=== PATIENT | female | born 1965 | race American Indian/Alaskan Native ===

== ENCOUNTER 2017-12-29 09:57 | Emergency (ER) | payer OTHER ==
[2017-12-29 10:01] VITALS: BMI 35.9
[2017-12-29] MEDS ORDERED: Sodium Chloride 0.9% 1,000 ML IV ONE (10:44)
[2017-12-29] MEDS ORDERED: Sodium Chloride 0.9% 1,000 ML IV SCH (10:45)
[2017-12-29 10:56] LABS: HCG,QUALITATIVE URINE NEGATIVE (NEGATIVE)
[2017-12-29 10:56] LABS: BASO % 0.5 % (0.0-2.0); EOS # 0.1 K/uL (0.0-0.7); EOS % 1.3 % (0.0-4.0); HEMOGLOBIN 12.6 g/dL (11.0-16.0); LYMPH # 2.6 K/uL (1.0-4.3); LYMPH % 36.9 % (20.0-40.0); MEAN CORPUSCULAR HEMOGLOBIN 28.3 pg (27.0-31.0); MEAN CORPUSCULAR HGB CONC 33.7 g/dL (33.0-37.0); MEAN PLATELET VOLUME 8.1 fL (7.2-11.7); MONO # 0.4 K/uL (0.0-0.8); MONO % 6.3 % (0.0-10.0); NEUT # 3.8 K/uL (1.8-7.0); NRBC % 0.2 % (0.0-2.0); RBC 4.46 Mil/uL (3.80-5.20); RED CELL DISTRIBUTION WIDTH 13.9 % (11.5-14.5)
[2017-12-29 11:03] LABS: SQUAMOUS EPITHIAL 7 /hpf (0-5); URINE BACTERIA RARE (<OCC); URINE BILIRUBIN NEGATIVE (NEGATIVE); URINE BLOOD NEGATIVE (NEGATIVE); URINE CLARITY Hazy (Clear); URINE COLOR Yellow (YELLOW); URINE GLUCOSE (UA) NORMAL (Normal); URINE LEUKOCYTE ESTERASE TRACE Leu/uL (Negative); URINE PROTEIN NEGATIVE (NEGATIVE); URINE UROBILINOGEN NORMAL mg/dL (0.2-1.0)
[2017-12-29] MEDS ORDERED: Sodium Chloride 0.9% 1,000 ML ONE (11:05)
[2017-12-29 11:24] LABS: ALB/GLOB RATIO 1.1 (1.0-2.1); ALBUMIN 3.8 g/dL (3.5-5.0); ALT/SGPT 26 U/L (9-52); AST/SGOT 20 U/L (14-36); BLOOD UREA NITROGEN 14 mg/dL (7-17); CALCIUM 9.6 mg/dl (8.6-10.4); GFR AFRICAN-AMERICAN > 60; GFR NON-AFRICAN AMERICAN > 60; LIPASE 101 U/L (23-300)
--- NOTE | 2017-12-29 12:23 | C.PDOC ---
History Of Present Illness 52-year-old female, presents to the emergency department with complaints of right lower abdominal pain intermittently for the past two months. Patient notes pain comes and goes on its own. Not worsened with food. She denies any nausea/vomiting, diarrhea, fevers, vaginal discharge or bleeding. patient notes a Hx of fibroids and ectopic with surgery. Last LMP was over ten years ago after fibroid surgery. Normal BM today. Time Seen by Provider: 12/29/17 10:07 Chief Complaint (Nursing): Abdominal Pain History Per: Patient History/Exam Limitations: no limitations Past Medical History Reviewed: Historical Data, Nursing Documentation, Vital Signs Vital Signs: Last Vital Signs Temp 97.7 F 12/29/17 14:25 Pulse 51 L 12/29/17 14:25 Resp 20 12/29/17 14:25 BP 137/72 12/29/17 14:25 Pulse Ox 96 12/29/17 14:25 - Medical History PMH: Deep Vein Thrombosis Family History: States: No Known Family Hx - Social History Hx Tobacco Use: No Hx Alcohol Use: No Hx Substance Use: No - Immunization History Hx Tetanus Toxoid Vaccination: No Hx Influenza Vaccination: No Hx Pneumococcal Vaccination: No Review Of Systems Constitutional: Negative for: Fever Gastrointestinal: Positive for: Abdominal Pain. Negative for: Nausea, Vomiting , Diarrhea Genitourinary: Negative for: Vaginal Discharge, Vaginal Bleeding Skin: Negative for: Rash Neurological: Negative for: Weakness, Numbness Physical Exam - Physical Exam Appears: Non-toxic, No Acute Distress Skin: Normal Color, Warm, Dry, No Rash Head: Atraumatic, Normacephalic Eye(s): bilateral: Normal Inspection, EOMI Nose: Normal Oral Mucosa: Moist Lips: Normal Appearing Neck: Normal ROM, Supple Chest: Symmetrical Cardiovascular: Rhythm Regular Respiratory: Normal Breath Sounds, No Accessory Muscle Use Gastrointestinal/Abdominal: Soft, Tenderness (right pelvic, right lower quadrant ), No Guarding, No Rebound Back: No CVA Tenderness, No Vertebral Tenderness Extremity: Normal ROM, No Deformity, No Swelling Neurological/Psych: Oriented x3, Normal Speech ED Course And Treatment - Laboratory Results Result Diagrams: 12/29/17 10:52 12/29/17 10:52 O2 Sat by Pulse Oximetry: 100 (RA) Pulse Ox Interpretation: Normal - CT Scan/US Abd/pelvic CT Other Rad Studies (CT/US): Read By Radiologist, Radiology Report Reviewed CT/US Interpretation: PROCEDURE: CT Abdomen and Pelvis with contrast. HISTORY : abd pain. COMPARISON: CT scan of the abdomen pelvis dated 01/07/2014. TECHNIQUE: Contrast dose: 100 mL Visipaque 320. Radiation dose: Total exam DLP = 1030.9 mGy-cm. This CT exam was performed using one or more of the following dose reduction techniques: Automated exposure control, adjustment of the mA and/or kV according to patient size, and/or use of iterative reconstruction technique. FINDINGS: LOWER THORAX: Unremarkable. LIVER: Stable too small to characterize 9 mm right hepatic lobe hypodensity. No ductal dilatation. GALLBLADDER AND BILE DUCTS: Unremarkable. PANCREAS: Stable 3 mm pancreatic tail hypodensity. No ductal dilatation. SPLEEN: Unremarkable. ADRENALS: Unremarkable. No mass. KIDNEYS AND URETERS: Unremarkable. No hydronephrosis. No solid mass. VASCULATURE: Inferior vena cava filter redemonstrated. No aortic aneurysm. BOWEL: Prominent amount of retained colonic stool. No obstruction. No gross mural thickening. APPENDIX: Normal appendix. PERITONEUM: Unremarkable. No free fluid. No free air. LYMPH NODES: Unremarkable. No enlarged lymph nodes. BLADDER: Unremarkable. REPRODUCTIVE : Unremarkable. BONES: No acute fracture. OTHER FINDINGS: None. IMPRESSION : No acute abdominal pelvic pathology. Stable incidental findings as above. Progress Note: CT Abd/Pel, Bloodwork and UA ordered/reviewed. On re-evaluation , pt notes she currently does not have any pain. Patient is resting comfortably , in no distress, abdomen is soft, no rebound or guarding, and is tolerating PO. Patient has no signs or symptoms to suggest surgical pathology. Patient was instructed to follow up with physician/clinic in 1-2 days for further evaluation or return to ED if symptoms persist or worsen. Disposition - Disposition Referrals: Garrett Pro MD [Staff Provider] - Disposition: HOME/ ROUTINE Disposition Time: 14:11 Condition: STABLE Additional Instructions: Follow up with primary medical doctor in 1-3 days without fail for further evaluation. Take medications as prescribed. Return to the emergency department at any time if symptoms persist or worsen. Prescriptions: Polyethylene Glycol 3350 [Miralax] 17 gm PO DAILY #85 gm Instructions: Acute Abdomen (Belly Pain), Adult (DC) Forms: [employer] ([employer]) (Ivorian) - Clinical Impression Clinical Impression: Abdominal pain - Scribe Statement The provider has reviewed the documentation as recorded by the Scribe (Aly Raza) All medical record entries made by the Scribe were at my direction and personally dictated by me. I have reviewed the chart and agree that the record accurately reflects my personal performance of the history, physical exam, medical decision making, and the department course for this patient. I have also personally directed, reviewed, and agree with the discharge instructions and disposition.
[2017-12-29] MEDS ORDERED: Iodixanol 320 MG/ML 100 ML BOTTLE IV ONE (12:39)
--- NOTE | 2017-12-29 13:53 | CT ---
PROCEDURE: CT Abdomen and Pelvis with contrast HISTORY: abd pain COMPARISON: CT scan of the abdomen pelvis dated 01/07/2014. TECHNIQUE: Contrast dose: 100 mL Visipaque 320 Radiation dose: Total exam DLP = 1030.9 mGy-cm. This CT exam was performed using one or more of the following dose reduction techniques: Automated exposure control, adjustment of the mA and/or kV according to patient size, and/or use of iterative reconstruction technique. FINDINGS: LOWER THORAX: Unremarkable. LIVER: Stable too small to characterize 9 mm right hepatic lobe hypodensity. No ductal dilatation. GALLBLADDER AND BILE DUCTS: Unremarkable. PANCREAS: Stable 3 mm pancreatic tail hypodensity. No ductal dilatation. SPLEEN: Unremarkable. ADRENALS: Unremarkable. No mass. KIDNEYS AND URETERS: Unremarkable. No hydronephrosis. No solid mass. VASCULATURE: Inferior vena cava filter redemonstrated. No aortic aneurysm. BOWEL: Prominent amount of retained colonic stool. No obstruction. No gross mural thickening. APPENDIX: Normal appendix. PERITONEUM: Unremarkable. No free fluid. No free air. LYMPH NODES: Unremarkable. No enlarged lymph nodes. BLADDER: Unremarkable. REPRODUCTIVE: Unremarkable. BONES: No acute fracture. OTHER FINDINGS: None. IMPRESSION: No acute abdominal pelvic pathology. Stable incidental findings as above.
[2017-12-29 14:26] VITALS: BP 137/72; PULSE 51; RESP 20; TEMP 97.7
[2017-12-29 16:40] VITALS: O2SAT 100
== END 2017-12-29 14:25 | disposition home or self-care (01) ==
LOC: C.ER 09:57
DX: R10.9 Unspecified abdominal pain (principal); Z86.718 Personal history of other venous thrombosis and embolism
CPT/HCPCS: 74177; 80053; 81001; 83690; 84703; 85025; 99285; J7040; Q9967